=== PATIENT | female | born 1990 | race Hispanic/Latino ===

== ENCOUNTER 2021-02-13 22:28 | Emergency (ER) | payer BC ==
--- OUTSIDE RECORDS SUMMARY | 2021-02-13 22:32 | XMS REPORT | Continuity of Care Document ---
:1990 Author Organization [facility] t Address [address] [place] [address] Care Team Providers Name Role Phone Unavailable Unavailable Unavailable Payers Payer Name Policy Type Policy Number Effective Date Expiration Date S ource Problems This patient has no known problems. Allergies, Adverse Reactions, Alerts Allergy Allergy Status Severity Reaction(s) Onset Inactive Treating Comm ents Source Name Type Date Date Clinician No Known DA Active U 2019-07 [facility] 08-10 [facility] 00:00: [facility] [place] Medications This patient has no known medications. Procedures This patient has no known procedures. Encounters Start End Encounter Admission Attending Care Care Encounter Source Date/Time Date/Time Type Type Clinicians Facility Department ID 2019-10-03 2019-10-03 Outpatient [id number] 07:11:00 07:11:00 Results Test Description Test Time Test Comments Results Result Sourc e Comments - XR CHEST 1 V 2020-06-10 18:33:00 [facility] : 1990 Sex: F Patient Name: LUIS ENRIQUE CRUZ Unit No: [id number] EXAMS: CPT CODE: [id number] XR CHEST 1 V 29904 Portable single view AP chest INDICATION: Palpitations. 16 weeks . Comparison: None. FINDINGS: The cardiomediastinal silhouette is normal in size. Lungs are clear. Costophrenic angles are sharp. No suspicious osseous abnormality is seen. IMPRESSION: No evidence for acute cardiopulmonary disease. SL: SG-H at 1833 Reported and signed by: Juan Diego Sin MD CC: Ana Lewis MD; Josemanuel Canales MD Technologist: Edilia Krause, RT; RT Shalini Trnscrbd D/ (1832) [id number] Orig Print D/T: S: 06/10/2020 (1835) [facility] NAME: LUIS ENRIQUE CRUZ Radiology Department PHYS: [email or web address] - Josemanuel Canales MD [address] : 1990 AGE: 29 SEX: F [place], [place] [address] LOC: MIYA PHONE #: [phone] EXAM DATE: 06/10/2020 STATUS: REG ER FAX #: [phone] RAD NO: Page 1 Signed Report COMPREHENSIVE METABOLIC PANEL 2020-06-10 18:06:00 Test Item Value Reference Range Interpretation Comme nts SODIUM (test code = NA) 135 mEq/L 135-145 N POTASSIUM (test code = K) 4.1 mEq/L 3.5-5.0 N CHLORIDE (test code = CL) 101 mEq/L 100-115 N CARBON DIOXIDE (test code = CO2) 21 mEq/L 22-31 L ANION GAP (test code = GAP) 17.40 10-20 N GLUCOSE (test code = GLU) 81 mg/dL 65-110 N BLOOD UREA NITROGEN (test code = BUN) 6 mg/dL 7-18 L GLOMERULAR FILTRATION RATE (test code = GFR) 148 ml/min >60 N CREATININE (test code = CREAT) 0.5 mg/dL 0.5-1.0 N TOTAL PROTEIN (test code = PROT) 7.9 gm/dL 6.3-8.2 N ALBUMIN (test code = ALB) 3.1 gm/dL 3.4-4.8 L CALCIUM (test code = CA) 9.6 mg/dL 8.4-10.2 N BILIRUBIN TOTAL (test code = BILT) 0.2 mg/dL 0.2-1.0 N SGOT/AST (test code = AST) 21 units/L 15-37 N SGPT/ALT (test code = ALT) 30 units/L 12-78 N ALKALINE PHOSPHATASE TOTAL (test code = ALKP) 74 units/L 46-116 N CBC W/AUTO [id number] 17:56:00 Test Item Value Reference Range Interpretation Comments WHITE BLOOD CELL (test code = WBC) 13.2 K/mm3 6.6-12.1 H RED BLOOD CELL (test code = RBC) 4.56 M/mm3 3.45-5.01 N HEMOGLOBIN (test code = HGB) 12.2 g/dL 10.7-13.9 N HEMATOCRIT (test code = HCT) 37.3 % 32.1-42.1 N MEAN CELL VOLUME (test code = MCV) 82 fL 84.1-94.8 L MEAN CELL HGB (test code = MCH) 26.8 pg 27-35 L MEAN CELL HGB CONCETRATION (test 32.7 gm/dL 32.2-34.1 N code = MCHC) RED CELL DISTRIBUTION WIDTH (test 13.4 % 12.4-16.5 N code = RDW) PLATELET COUNT (test code = PLT) 337 K/mm3 133-385 N MEAN PLATELET VOLUME (test code = 11.3 fl 9.1-12.7 N MPV) NEUTROPHIL % (test code = NT%) 68.3 % 56.5-79.4 N LYMPHOCYTE % (test code = LY%) 23.8 % 14.3-34.3 N MONOCYTE % (test code = MO%) 5.8 % 5.1-10.4 N EOSINOPHIL % (test code = EO%) 1.3 % 0.1-3.0 N BASOPHIL % (test code = BA%) 0.2 % 0.1-1.0 N NEUTROPHIL # (test code = NT#) 9.0 K/mm3 LYMPHOCYTE # (test code = LY#) 3.1 K/mm3 MONOCYTE # (test code = MO#) 0.8 K/mm3 EOSINOPHIL # (test code = EO#) 0.17 K/mm3 BASOPHIL # (test code = BA#) 0.0 K/mm3 RBC MORPHOLOGY REQUIRED (test code NORMAL NORMAL = RBCM) PLATELET MORPHOLOGY REQUIRED (test NORMAL NORMAL code = PLTMR) UA RFLX MICR CULT IF [id number] 17:56:00 Test Item Value Reference Range Interpretation Comments UA COLOR (test code = COLU) YELLOW YELLOW UA APPEARANCE (test code = CLOUDY CLEAR A APPU) UA GLUCOSE DIPSTICK (test code NEGATIVE NEG = DGLUU) UA BILIRUBIN DIPSTICK (test NEGATIVE NEG code = BILU) UA KETONE DIPSTICK (test code NEGATIVE NEG = KETU) UA SPECIFIC GRAVITY (test code 1.009 1.001-1.035 N = SGU) UA BLOOD DIPSTICK (test code = NEG NEG CONCEPCIÓN) UA PH DIPSTICK (test code = 5.0 5-9 OC) UA PROTEIN DIPSTICK (test code NEGATIVE NEG = PROU) UA UROBILINIOGEN DIPSTICK NEGATIVE mg/dL NEG (test code = URO) UA NITRITE DIPSTICK (test code NEG NEG = IQRA) UA LEUKOCYTE ESTERASE DIPSTICK 2+ NEG A (test code = LEUU) UA WBC (test code = WBCU) 16-20 #/hpf NONE SEEN A UA RBC (test code = RBCU) 11-15 #/hpf NONE SEEN A UA EPITHELIAL CELLS (test code MANY #/HPF RARE-FEW A = EPIU) UA BACTERIA (test code = BACU) MODERATE /HPF RARE-FEW A UA MUCUS (test code = MUCU) 1+ NONE SEEN Indication for culture: Suprapubic PainSpecimen Description: RANDOM
[2021-02-14] MEDS ORDERED: HYDROCODONE/APAP 7.5/325 MG TAB ONE (01:53)
--- NOTE | 2021-02-14 02:55 | ER ---
Nurse's Notes [facility] Name: Maira Eli Age: 30 yrs Sex: Female : 1990 Arrival Date: 02/13/2021 Time: 22:33 Bed 17 Private MD: Diagnosis: Pain/numbness left upper extremity. Cervical radiculopathy Presentation: 02/13 22:54 Chief complaint: Patient states: left finger pain that radiates all the way up to the em left shoulder that started at 11 AM, denies any injury. Coronavirus screen: Client denies travel out of the [place] in the last 14 days. Ebola Screen: Patient negative for fever greater than or equal to 101.5 degrees Fahrenheit, and additional compatible Ebola Virus Disease symptoms Patient denies exposure to infectious person. Patient denies travel to an Ebola-affected area in the 21 days before illness onset. No symptoms or risks identified at this time. Initial Sepsis Screen: Does the patient meet any 2 criteria? No. Patient's initial sepsis screen is negative. Does the patient have a suspected source of infection? No. Patient's initial sepsis screen is negative. Risk Assessment: Do you want to hurt yourself or someone else? Patient reports no desire to harm self or others. Onset of symptoms was February 13, 2021. 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 - Social history:: Smoking status: Patient denies any tobacco usage or history of. Screenin/19 01:00 Abuse screen: Denies threats or abuse. Nutritional screening: No deficits noted. jb4 Tuberculosis screening: No symptoms or risk factors identified. Fall Risk None identified. Assessment: 01:00 General: Appears in no apparent distress. uncomfortable, Behavior is calm, cooperative, jb4 appropriate for age. Pain: Complains of pain in left arm Pain does not radiate. Pain currently is 10 out of 10 on a pain scale. Neuro: Level of Consciousness is awake, alert, obeys commands, Oriented to person, place, time, situation. Cardiovascular: Patient's skin is warm and dry. Respiratory: Airway is patent Respiratory effort is even, unlabored, Respiratory pattern is regular, symmetrical. GI: No signs and/or symptoms were reported involving the gastrointestinal system. : No signs and/or symptoms were reported regarding the genitourinary system. EENT: No signs and/or symptoms were reported regarding the EENT system. Derm: Skin is intact, Skin is pink, warm \T\ dry. Musculoskeletal: Circulation, motion, and sensation intact. Range of motion: intact in all extremities. 03:00 Reassessment: Patient appears in no apparent distress at this time. Patient and/or jb4 family updated on plan of care and expected duration. Pain level reassessed. Patient is alert, oriented x 3, equal unlabored respirations, skin warm/dry/pink. Vital Signs: 02/13 22:54 BP 137 / 80; Pulse 78; Resp 18; Temp 97.6; Pulse Ox 100% on R/A; Weight 86.18 kg; em Height 5 ft. 1 in. (154.94 cm); 02/14 03:00 BP 128 / 78; Pulse 80; Resp 18; Pulse Ox 99% on R/A; jb4 02/13 22:54 Body Mass Index 35.90 (86.18 kg, 154.94 cm) em ED Course: 02/13 22:33 Patient arrived in ED. cf2 22:56 Triage completed. em 22:56 Arm band placed on. em 02/14 01:00 Patient has correct armband on for positive identification. Bed in low position. Call jb4 light in reach. Side rails up X 1. Pulse ox on. NIBP on. 01:15 Murphy Holland MD is Attending Physician. pkl 01:28 Valeriy Gaona, RN is Primary Nurse. jb4 01:59 CT C Spine In Process Unspecified. EDMS 03:09 No provider procedures requiring assistance completed. Patient did not have IV access jb4 during this emergency room visit. Administered Medications: 01:35 Drug: [place] (HYDROcodone-acetaminophen) (7.5 mg-325 mg) 1 tabs Route: PO; jb4 02:30 Follow up: Response: No adverse reaction; Marked relief of symptoms; Pain is decreased; jb4 RASS: Alert and Calm (0) Outcome: 02:55 Discharge ordered by . sergio 03:09 Discharged to home ambulatory. jb4 03:09 Condition: stable 03:09 Discharge instructions given to patient, Instructed on discharge instructions, follow up and referral plans. medication usage, Demonstrated understanding of instructions, follow-up care, medications, Prescriptions given X 1. 03:10 Patient left the ED. jb4 Signatures: Dispatcher [employer] Murphy Palmer MD MD pkl Munoz, Edgar, RN RN Valeriy Brady RN RN jb4 Carlos Najera 2
--- NOTE | 2021-02-14 02:56 | EDPHYS ---
Physician Documentation [facility] Name: Maira Eli Age: 30 yrs Sex: Female : 1990 Arrival Date: 02/13/2021 Time: 22:33 Bed 17 Private MD: ED Physician Murphy Hloland HPI: 02/14 01:25 This 30 yrs old Female presents to ER via Ambulatory with complaints of FINGER pkl PAIN, Shoulder Pain. 01:26 The patient or guardian complains of pain, that is acute. The complaints affect the pkl left upper extremity. Onset: The symptoms/episode began/occurred yesterday. Associated signs and symptoms: The patient has no apparent associated signs or symptoms. 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 - Social history:: Smoking status: Patient denies any tobacco usage or history of. ROS: 02/14 01:26 Eyes: Negative for injury, pain, redness, and discharge, ENT: Negative for injury, pkl pain, and discharge, Neck: Negative for injury, pain, and swelling, Cardiovascular: Negative for chest pain, palpitations, and edema, Respiratory: Negative for shortness of breath, cough, wheezing, and pleuritic chest pain, Abdomen/GI: Negative for abdominal pain, nausea, vomiting, diarrhea, and constipation, Back: Negative for injury and pain, : Negative for injury, bleeding, discharge, and swelling, Skin: Negative for injury, rash, and discoloration. MS/extremity: Positive for pain, paresthesias, of the left upper extremity. 01:29 Neuro: Positive for numbness, of the left upper extremity. pkl Exam: 01:31 Head/Face: Normocephalic, atraumatic. Eyes: Pupils equal round and reactive to light, pkl extra-ocular motions intact. Lids and lashes normal. Conjunctiva and sclera are non-icteric and not injected. Cornea within normal limits. Periorbital areas with no swelling, redness, or edema. ENT: Nares patent. No nasal discharge, no septal abnormalities noted. Tympanic membranes are normal and external auditory canals are clear. Oropharynx with no redness, swelling, or masses, exudates, or evidence of obstruction, uvula midline. Mucous membranes moist. Neck: Trachea midline, no thyromegaly or masses palpated, and no cervical lymphadenopathy. Supple, full range of motion without nuchal rigidity, or vertebral point tenderness. No Meningismus. Chest/axilla: Normal chest wall appearance and motion. Nontender with no deformity. No lesions are appreciated. Cardiovascular: Regular rate and rhythm with a normal S1 and S2. No gallops, murmurs, or rubs. Normal PMI, no JVD. No pulse deficits. Respiratory: Lungs have equal breath sounds bilaterally, clear to auscultation and percussion. No rales, rhonchi or wheezes noted. No increased work of breathing, no retractions or nasal flaring. Abdomen/GI: Soft, non-tender, with normal bowel sounds. No distension or tympany. No guarding or rebound. No evidence of tenderness throughout. Back: No spinal tenderness. No costovertebral tenderness. Full range of motion. Skin: Warm, dry with normal turgor. Normal color with no rashes, no lesions, and no evidence of cellulitis. 01:31 Musculoskeletal/extremity: Extremities: grossly normal except: noted in the left upper extremity: pain, numbness. Vital Signs: 02/13 22:54 BP 137 / 80; Pulse 78; Resp 18; Temp 97.6; Pulse Ox 100% on R/A; Weight 86.18 kg; em Height 5 ft. 1 in. (154.94 cm); 02/14 03:00 BP 128 / 78; Pulse 80; Resp 18; Pulse Ox 99% on R/A; jb4 02/13 22:54 Body Mass Index 35.90 (86.18 kg, 154.94 cm) em MDM: 01:15 Patient medically screened. pkl 02:50 Data reviewed: vital signs, nurses notes, lab test result(s), radiologic studies, CT pkl scan. ED course: Patient feeling better. Discussed lab and CT Scan results with patient. Advised to follow up with Neurologist in 2 to 3 days. Patient understood instructions. 02/14 01:30 Order name: D-Dimer; Complete Time: 02:24 pkl 02/14 01:24 Order name: CT C Spine pkl 02/14 02:53 Order name: Madhav; Complete Time: 03:06 pkl Administered Medications: 01:35 Drug: [place] (HYDROcodone-acetaminophen) (7.5 mg-325 mg) 1 tabs Route: PO; jb4 02:30 Follow up: Response: No adverse reaction; Marked relief of symptoms; Pain is decreased; jb4 RASS: Alert and Calm (0) Disposition Summary: 02/14/21 02:55 Discharge Ordered Location: Home pkl Problem: new pkl Symptoms: have improved pkl Condition: Stable pkl Diagnosis - Pain/numbness left upper extremity. Cervical radiculopathy pkl Followup: pkl - With: Private Physician - When: 2 - 3 days - Reason: Re-evaluation by your physician Discharge Instructions: - Discharge Summary Sheet pkl Forms: - Medication Reconciliation Form pkl - Thank You Letter pkl - Antibiotic Education pkl - Prescription Opioid Use pkl Prescriptions: - Diclofenac Sodium 75 mg Oral Tablet Sustained Release - take 1 tablet by ORAL route 2 times per day; 30 tablet; Refills: 0, Product pkl Selection Permitted Signatures: Dispatcher [employer] Murhpy Palmer MD MD pkl Yovanny Nuñez, RN RN Valeriy Brady RN RN jb4
[2021-02-14 03:24] VITALS: TEMP 97.6
[2021-02-14 03:31] VITALS: BP 128/78; O2SAT 99
--- NOTE | 2021-02-14 11:12 | RAD REPORT ---
EXAM DESCRIPTION: CT - C Spine Wo Christiano - 02/14/2021 4:53 am CLINICAL HISTORY: The patient is 30 years old and is Female; pain left upper extremity TECHNIQUE: Axial computed tomography images of the cervical spine without intravenous contrast. Sa gittal and coronal reformatted images were created and reviewed. This CT exam was performed using o ne or more of the following dose reduction techniques: automated exposure control, adjustment of th e mA and/or kV according to patient size, and/or use of iterative reconstruction technique. COMPARISON: No relevant prior studies available. FINDINGS: Vertebrae: Unremarkable. No acute fracture. Discs/spinal canal/neural foramina: No acute findings. No spinal canal stenosis. Soft tissues: Unremarkable. Sinuses: Right maxillary sinus retention cyst or polyp. IMPRESSION: No acute fracture or subluxation. Electronically signed by: Isaac Sullivan MD 02/14/2021 2:32 AM CDT Due to temporary technical issues with the PACS/Fluency reporting system, reports are being signed by the in house radiologist without review as a courtesy to ensure prompt reporting. The interpreting r adiologist is fully responsible for the content of the report.
== END 2021-02-14 03:10 | disposition home or self-care (01) ==
LOC: ER 22:28
DX: M54.12 Radiculopathy, cervical region (principal)
CPT/HCPCS: 36415; 72125; 85379; 99284

== ENCOUNTER 2024-03-23 21:41 | Emergency (ER) | payer BC ==
[2024-03-23] MEDS ORDERED: LIDOCAINE 1% MPF 5 ML VIAL ONE (23:35)
[2024-03-23] MEDS ORDERED: TDAP (DIPHTH,PERTUSS(ACELL),TET VAC) 0.5 ML VIAL IMVAC ONE (23:35)
--- NOTE | 2024-03-24 00:20 | EDPHYS ---
Physician Documentation [facility] Name: Maira Eli Age: 33 yrs Sex: Female : 1990 Arrival Date: 03/23/2024 Time: 21:41 Bed Treatment Private MD: ED Physician Sarwat Cole HPI: 03/24 04:48 This 33 yrs old Female presents to ER via Ambulatory with complaints of rt LACERATION TO FINGER. 04:48 Patient presents to the ED with a laceration to the left index finger with a kitchen rt knife while cooking. Reports mild bleeding, denies other injury, due to complaints, symptoms are mild in severity, no other aggravating or alleviating factors.. 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 - Infectious Disease History:: Denies. - Social history:: Smoking status: Patient denies any tobacco usage or history of. - Family history:: not pertinent. ROS: 03/24 04:48 Constitutional: Negative for fever, chills, and weight loss, Neuro: Negative for rt headache, weakness, numbness, tingling, and seizure, MS/extremity: Positive for laceration, Negative for deformity, Exam: 04:48 Constitutional: This is a well developed, well nourished patient who is awake, alert, rt and in no acute distress. Head/Face: Normocephalic, atraumatic. Neuro: Awake and alert, GCS 15, oriented to person, place, time, and situation. Cranial nerves II-XII grossly intact. Motor strength 5/5 in all extremities. Sensory grossly intact. Cerebellar exam normal. Normal gait. 04:48 Musculoskeletal/extremity: 1 cm laceration without foreign body to the left index finger, no active bleeding.. Vital Signs: 03/23 23:08 BP 145 / 84; Pulse 78; Resp 14; Temp 97.5; Pulse Ox 100% ; Weight 69.4 kg; Height 5 ft. vc1 1 in. ; Pain 05/08; 23:08 Body Mass Index 28.91 (69.40 kg, 154.94 cm) vc1 23:08 Pain Scale: Adult vc1 Laceration: 03/24 04:48 Wound Repair of 1cm ( 0.4in ) subcutaneous laceration to left index finger. Linear rt shaped.. Distal neuro/vascular/tendon intact. Anesthesia: Digital block administered with 2 mls of 1% lidocaine. Wound prep: Copious irrigation. Skin closed with 2 4-0 Prolene using simple sutures and sterile technique. Dressed with 4x4's. Patient tolerated well. MDM: 03/23 23:03 Patient medically screened. rt 03/24 04:48 Differential Diagnosis Laceration. Data reviewed: vital signs, nurses notes. rt Counseling: I had a detailed discussion with the patient and/or guardian regarding the historical points, exam findings, and any diagnostic results supporting the discharge/admit diagnosis, the need for outpatient follow up, to return to the emergency department if symptoms worsen or persist or if there are any questions or concerns that arise at home. Response to treatment: the patient's symptoms have markedly improved after treatment. Administered Medications: 03/23 23:39 Drug: Boostrix Tdap IM 0.5 ml IM once; as a single dose Route: IM; Site: left deltoid; pc2 03/24 00:10 Follow up: Response: No adverse reaction pc2 00:22 Drug: Lidocaine Infiltration (1 %) 5 ml 5 ml Infiltration once; to bedside {Note: pc2 administered by MD at bedside for procedure.} Volume: 5 ml; Route: Infiltration; Disposition Summary: 03/24/24 00:20 Discharge Ordered Notes: Location: Home rt Problem: new rt Symptoms: have improved rt Condition: Stable rt Diagnosis - Laceration to left index finger rt Followup: rt - With: Private Physician - When: 10 - 14 days - Reason: Staple/Suture removal Discharge Instructions: - Discharge Summary Sheet rt - Laceration Care, Adult rt Forms: - Medication Reconciliation Form rt - Antibiotic Education rt - Prescription Opioid Use rt - Patient Portal Instructions rt - Leadership Thank You Letter rt Signatures: Lori Le RN RN vc1 Sarwat Cole MD MD rt Chikis Reynolds, RN RN pc2
--- NOTE | 2024-03-24 00:20 | ER ---
Nurse's Notes [facility] Name: Maira Eli Age: 33 yrs Sex: Female : 1990 Arrival Date: 03/23/2024 Time: 21:41 Bed Treatment Private MD: Diagnosis: Laceration to left index finger Presentation: 03/23 23:04 Chief complaint: Patient states: cut left finger while cutting up mangos. Coronavirus vc1 screen: Client denies travel out of the [place] in the last 14 days. At this time, the client does not indicate any symptoms associated with coronavirus-19. Ebola Screen: Patient negative for fever greater than or equal to 101.5 degrees Fahrenheit, and additional compatible Ebola Virus Disease symptoms Patient denies exposure to infectious person. Patient denies travel to an Ebola-affected area in the 21 days before illness onset. No symptoms or risks identified at this time. Initial Sepsis Screen: Does the patient meet any 2 criteria? No. Patient's initial sepsis screen is negative. Does the patient have a suspected source of infection? No. Patient's initial sepsis screen is negative. Risk Assessment: Do you want to hurt yourself or someone else? Patient reports no desire to harm self or others. Onset of symptoms was March 23, 2024 at 20:45. 23:04 Method Of Arrival: Ambulatory vc1 23:04 Acuity: ALEX 4 vc1 Triage Assessment: 23:05 General: Appears in no apparent distress. comfortable, Behavior is calm, cooperative, vc1 appropriate for age. Pain: Complains of pain in left index finger Pain does not radiate. Pain currently is 10 out of 10 on a pain scale. EENT: No deficits noted. No signs and/or symptoms were reported regarding the EENT system. Neuro: Level of Consciousness is awake, alert, obeys commands, Oriented to person, place, time, situation, Appropriate for age. Cardiovascular: No deficits noted. Respiratory: Airway is patent Respiratory effort is even, unlabored, Respiratory pattern is regular, symmetrical. Derm: Skin is intact, Skin is dry, Wound noted left index finger. 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 - Infectious Disease History:: Denies. - Social history:: Smoking status: Patient denies any tobacco usage or history of. - Family history:: not pertinent. Screenin:39 [facility] ED Fall Risk Assessment (Adult) History of falling in the last 3 months, pc2 including since admission No falls in past 3 months (0 pts) Confusion or Disorientation No (0 pts) Intoxicated or Sedated No (0 pts) Impaired Gait No (0 pts) Mobility Assist Device Used No (0 pt) Altered Elimination No (0 pt) Score/Fall Risk Level 0 - 2 = Low Risk Oriented to surroundings, Maintained a safe environment, Hourly rounding (assess needs \T\ fall precautionary measures) done. Abuse screen: Denies threats or abuse. Denies injuries from another. Nutritional screening: No deficits noted. Tuberculosis screening: No symptoms or risk factors identified. Assessment: 23:40 General: Appears in no apparent distress. comfortable, slender, well groomed, well pc2 developed, Behavior is calm, cooperative, appropriate for age. 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 Neuro: Level of Consciousness is awake, alert, obeys commands, Oriented to person, place, time, situation. Cardiovascular: Patient's skin is warm and dry. Respiratory: Airway is patent Respiratory effort is even, unlabored, Respiratory pattern is regular, symmetrical. GI: Abdomen is non-distended. : No signs and/or symptoms were reported regarding the genitourinary system. EENT: No signs and/or symptoms were reported regarding the EENT system. Derm: Skin is dry, Skin is pink, warm \T\ dry. 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 bleeding controlled. Musculoskeletal: No signs and/or symptoms reported regarding the musculoskeletal system. 03/24 00:15 Reassessment: Patient appears in no apparent distress at this time. Patient and/or pc2 family updated on plan of care and expected duration. Pain level reassessed. Patient is alert, oriented x 3, equal unlabored respirations, skin warm/dry/pink. Patient states symptoms have improved. Vital Signs: 03/23 23:08 BP 145 / 84; Pulse 78; Resp 14; Temp 97.5; Pulse Ox 100% ; Weight 69.4 kg; Height 5 ft. vc1 1 in. ; Pain 10/10; 23:08 Body Mass Index 28.91 (69.40 kg, 154.94 cm) vc1 23:08 Pain Scale: Adult vc1 ED Course: 21:44 Patient arrived in ED. [id number] 22:16 Sarwat Cole MD is Attending Physician. rt 23:05 Triage completed. vc1 23:05 Arm band placed on right wrist. vc1 23:28 Chikis Reynolds, RN is Primary Nurse. pc2 23:39 No provider procedures requiring assistance completed. pc2 23:40 Patient has correct armband on for positive identification. Bed in low position. Call pc2 light in reach. Side rails up X 1. Provided Education on: POC and time frame. 03/24 00:29 Patient did not have IV access during this emergency room visit. pc2 Administered Medications: 03/23 23:39 Drug: Boostrix Tdap IM 0.5 ml IM once; as a single dose Route: IM; Site: left deltoid; pc2 03/24 00:10 Follow up: Response: No adverse reaction pc2 00:22 Drug: Lidocaine Infiltration (1 %) 5 ml 5 ml Infiltration once; to bedside {Note: pc2 administered by MD at bedside for procedure.} Volume: 5 ml; Route: Infiltration; Medication: 03/23 23:40 Vaccine Information Statement (VIS) provided today. Questions and/or concerns pc2 addressed. VIS edition date: 2020. Outcome: 03/24 00:20 Discharge ordered by . rt 00:28 Discharged to home ambulatory, with family, pc2 00:28 Condition: stable 00:28 Discharge instructions given to patient, Instructed on discharge instructions, follow up and referral plans. Demonstrated understanding of instructions, follow-up care, medications, wound care, 00:29 Patient left the ED. pc2 Signatures: Nevin Daley [id number] Lori Le RN RN vc1 Sarwat Cole MD MD rt Chikis Reynolds, RN RN pc2
[2024-03-24 01:31] VITALS: BP 145/84; TEMP 97.5; O2SAT 100
== END 2024-03-24 00:29 | disposition home or self-care (01) ==
LOC: ER 21:41
DX: S61.211A Laceration without foreign body of left index finger without damage to nail, initial encounter (principal)
CPT/HCPCS: 12001; 96372; 99284; J2001